=== PATIENT | female | born 1995 | race Caucasian/White ===

== ENCOUNTER 2016-08-23 10:48 | Outpatient (CLI) | payer MEDICAID | END 2016-08-23 10:49 | disposition home or self-care (01) | DX: O00.80 Other ectopic pregnancy without intrauterine pregnancy (principal) ==

== ENCOUNTER 2016-08-25 09:17 | Emergency (ER) | payer MEDICAID ==
[2016-08-25] MEDS ORDERED: HYDROcod/ACETAM 5/325 MG TABLET PO STA (09:33)
[2016-08-25] MEDS ORDERED: HYDROcod/ACETAM 5/325 MG TABLET ONE (09:44)
== END 2016-08-25 11:08 | disposition home or self-care (01) ==
DX: M54.5 Low back pain (principal); R23.8 Other skin changes; Z98.890 Other specified postprocedural states; F17.200 Nicotine dependence, unspecified, uncomplicated
CPT/HCPCS: 76830; 76856; 81003; 81025; 99283; 99284; A9270

== ENCOUNTER 2017-02-02 12:19 | Outpatient (CLI) | payer MEDICAID ==
[2017-02-05 14:02] LABS: TREPONEMA AB IGG NEGATIVE (())
== END 2017-02-02 12:20 ==
LOC: LAB.N 12:19
PROVIDERS: ATTEND Physician Assistant
DX: Z11.3 Encounter for screening for infections with a predominantly sexual mode of transmission (principal)
CPT/HCPCS: 36415; 86780; 86803; 87389; 87491; 87591